=== PATIENT | male | born 1955 | race Caucasian/White ===

== ENCOUNTER 2023-09-15 21:25 | Inpatient (IN) | payer MEDICARE, OTHER ==
[~2023-09-15] VITALS: Ht 180.3 cm; Wt 78.6 kg
[2023-09-15 21:54] LABS: Basophils # (auto) 0 10 ^3/uL (0-0.2); Basophils % (auto) 0.3 % (0.0-2.0); Eosinophils # (auto) 0 10 ^3/uL (0-0.8); Hemoglobin 18.2 g/dL (13.5-17.5); Monocytes # (auto) 0.7 10 ^3/uL (0-1.3); Monocytes % (auto) 4.8 % (0.0-12.0)
[2023-09-15 21:55] LABS: Lymphocytes # (auto) 0.9 10 ^3/uL (0.4-5.4); Lymphocytes % (auto) 6.3 % (10.0-50.0); Mean Corpuscular Hemoglobin 31.6 pg (28.0-32.0); Mean Corpuscular Hgb Conc. 32.1 g/dL (32.0-36.0); Mean Corpuscular Volume 98.6 fL (80.0-100.0); Neutrophils # (auto) 12.3 10 ^3/uL (1.6-8.6); Neutrophils % (auto) 88.6 % (37.0-80.0); Red Blood Cells 5.75 10^6/uL (4.5-5.90); Red Cell Distribution Width 15.6 % (11.8-14.3); White Blood Cell 13.8 10^3/uL (4.4-10.8)
[2023-09-15 21:56] LABS: Hematocrit 56.7 % (41.0-53.0)
[2023-09-15 22:00] VITALS: PULSE 124; RESP 40; O2SAT 91
[2023-09-15 22:09] LABS: INR 1.09 (0.9-1.15); Partial Thromboplastin Time 26.2 SEC (24.5-34.5); Prothrombin Time 11.5 sec (9.3-11.8)
[2023-09-15 22:14] LABS: Alanine Aminotransferase 44 U/L (7-40); Albumin 4.6 g/dL (3.2-4.8); Alkaline Phosphatase 99 U/L (46-116); Anion Gap 19 (5-15); Aspartate Aminotransferase 197 U/L (13-40); BUN/Creatinine Ratio 12.8 (10.0-20.0); Blood Urea Nitrogen 18 mg/dL (9-23); Calcium 10.8 mg/dL (8.5-10.1); Carbon Dioxide 16 mmol/L (20-30); Chloride 98 mmol/L (98-107); Potassium 5.3 mmol/L (3.5-5.1); Sodium 133 mmol/L (136-145)
[2023-09-15 22:15] LABS: Bilirubin, Total 1.4 mg/dL (0.2-1.0); Total Protein 7.9 g/dL (5.7-8.2)
[2023-09-15] MEDS: methylPREDNISolone SOD SUCC 125 MG/2 ML VL IV ONE (22:15)
[2023-09-15 22:17] LABS: Glucose 636 mg/dL (74-106)
[2023-09-15 22:20] VITALS: PULSE 132; RESP 36; O2SAT 94
[2023-09-15] MEDS: fentaNYL Drip 2500mCg/250mlNS 250 ML IV SCH (22:45)
[2023-09-15] MEDS: MIDAZOLAM DRIP 50 mg/50mL 50 ML IV SCH (22:45)
[2023-09-15] MEDS: HEPARIN SODIUM (PORCINE) 5000 UNITS/ML 1ML VIAL IV ONE (22:47)
[2023-09-15] MEDS: SUCCINYLCHOLINE CHLORIDE 20 MG/ML 10ML VIAL IV ONE (22:48)
[2023-09-15] MEDS: ETOMIDATE (2MG/ML) 20ML VIAL IV ONE (22:48)
[2023-09-15] MEDS: MIDAZOLAM DRIP 50 mg/50mL 50 ML IV ONE (22:48)
[2023-09-15] MEDS: fentaNYL Drip 2500mCg/250mlNS 250 ML IV ONE (22:49)
[2023-09-15] MEDS: HEPARIN SODIUM (PORCINE) 5000 UNITS/ML 1ML VIAL ONE (22:49)
[2023-09-15] MEDS: fentaNYL CITRATE 100 MCG/2 ML VL IV ONE (22:53)
[2023-09-15] MEDS: MIDAZOLAM HCL 5 MG/ML-1ML VIAL IV ONE (22:54)
[2023-09-15 22:56] LABS: Magnesium 2.1 mg/dL (1.6-2.6)
[2023-09-15] MEDS: ROCURONIUM 10MG/ML 10ML VIAL IV ONE ×2 (22:56→22:57)
[2023-09-15] MEDS: SODIUM CHL 0.9% 50 ML ONE (22:57)
[2023-09-15] MEDS: ANGIOMAX 250 MG VIAL IV ONE (22:57)
[2023-09-15] MEDS: LIDOCAINE 1% HCL (LOCAL ANESTH.) INJ 20ML MDV ONE (22:57)
[2023-09-15] MEDS: SODIUM CHLORIDE 0.9% 1,000 ML IV ONE (22:57)
[2023-09-15] MEDS: InsuLIN REG 1unit/0.01ml Soln (100units/ml) IV ONE (23:00)
[2023-09-15 23:03] VITALS: BP 133/96; PULSE 111; RESP 23; O2SAT 92
[2023-09-15] MEDS: IODIXANOL 320MG/ML 100ML BTL IV ONE (23:24)
[2023-09-15] MEDS: ALBUTEROL SULF 2.5 MG/0.5ML(0.5%) NEB SOLN NEB ONE (23:30)
[2023-09-15] MEDS: IPRATROPIUM BROM 0.5 MG/2.5ML INH SOL NEB ONE (23:30)
[2023-09-15] MEDS: SODIUM BICARB 8.4% 50Meq/50ml SYR Vial IV ONE (23:34)
[2023-09-15] MEDS: ATROPINE SULF 1 MG/10ml SYR ONE (23:35)
[2023-09-15] MEDS: NOREPINEPHRINE 8 MG/250ML KIT 250 ML IV ONE (23:39)
[2023-09-15] MEDS: EPTIFIBATIDE INJ (2MG/ML) 10ML VIAL IV ONE (23:46)
[2023-09-16] VITALS (158 sets, daily range): BP systolic 99–146; BP diastolic 54–99; PULSE 74–120; RESP 11–25; TEMP 98.2–100.3; O2SAT 96–100
[2023-09-16] MEDS: CLOPIDOGREL BISULFATE 75 MG TAB ONE (00:23)
[2023-09-16] MEDS: ASPirin 325 MG TAB ONE (00:23)
[2023-09-16 01:07] LABS: Base Excess -16.4 mmol/L (-2.0-2.0)
[2023-09-16] MEDS ORDERED: DEXTROSE (50%) 50ML SYRG IV PRN ×2 (01:15→19:30)
[2023-09-16] MEDS: SODIUM BICARB 8.4% 50Meq/50ml SYR Vial IV ONE ×2 (01:20→04:00)
[2023-09-16] MEDS: SODIUM BICARB 8.4% 50Meq/50ml SYR Vial IV STA (01:20)
[2023-09-16] MEDS: INSULIN DRIP 100 UNIT/100ML 100 ML IV ONE (01:21)
[2023-09-16 01:46] LABS: Basophils # (auto) 0 10 ^3/uL (0-0.2); Basophils % (auto) 0.2 % (0.0-2.0); Eosinophils # (auto) 0 10 ^3/uL (0-0.8); Eosinophils % (auto) 0.1 % (0.0-7.0); Hematocrit 53.3 % (41.0-53.0); Lymphocytes # (auto) 0.6 10 ^3/uL (0.4-5.4); Lymphocytes % (auto) 3.1 % (10.0-50.0); Mean Corpuscular Hemoglobin 31.6 pg (28.0-32.0); Mean Corpuscular Volume 98.9 fL (80.0-100.0); Monocytes # (auto) 1.8 10 ^3/uL (0-1.3); Monocytes % (auto) 9.1 % (0.0-12.0); Neutrophils # (auto) 17.6 10 ^3/uL (1.6-8.6); Neutrophils % (auto) 87.5 % (37.0-80.0); Nucleated Red Blood Cells % 0.1 %; Red Blood Cells 5.39 10^6/uL (4.5-5.90); White Blood Cell 20.2 10^3/uL (4.4-10.8)
[2023-09-16] MEDS: INSULIN DRIP 100 UNIT/100ML 100 ML IV SCH (01:51)
[2023-09-16] MEDS: ACCU-CHEK COMFORT CURVE STRIP VI SCH ×2 (01:52→20:21)
[2023-09-16 02:02] LABS: Chloride 103 mmol/L (98-107); Potassium 4.4 mmol/L (3.5-5.1)
[2023-09-16 02:03] LABS: Anion Gap 20 (5-15); Carbon Dioxide 15 mmol/L (20-30)
[2023-09-16 02:08] LABS: BUN/Creatinine Ratio 13.4 (10.0-20.0); Blood Urea Nitrogen 21 mg/dL (9-23)
[2023-09-16 02:23] LABS: Sodium 138 mmol/L (136-145)
[2023-09-16 02:28] LABS: Glucose 530 mg/dL (74-106)
[2023-09-16 02:42] LABS: INR 1.41 (0.9-1.15); Partial Thromboplastin Time 57.7 SEC (24.5-34.5); Prothrombin Time 14.6 sec (9.3-11.8)
[2023-09-16] MEDS: NOREPINEPHRINE 8 MG/250ML KIT 250 ML IV SCH (02:52)
[2023-09-16 03:12] LABS: Magnesium 2.2 mg/dL (1.6-2.6)
[2023-09-16] MEDS: methylPREDNISolone SOD SUCC 125 MG/2 ML VL IV ONE (03:23)
[2023-09-16] MEDS: HEPARIN DRIP/D5W 100UNITS/ML 250 ML IV SCH ×2 (04:26→14:00)
[2023-09-16 05:05] LABS: Base Excess -6.2 mmol/L (-2.0-2.0)
[2023-09-16] MEDS: methylPREDNISolone SOD SUCC 40 MG/ML VL IV SCH (06:04)
[2023-09-16 07:15] LABS: Base Excess -2.3 mmol/L (-2.0-2.0)
[2023-09-16 07:37] LABS: Basophils # (auto) 0 10 ^3/uL (0-0.2); Basophils % (auto) 0.1 % (0.0-2.0); Eosinophils # (auto) 0 10 ^3/uL (0-0.8); Hematocrit 49.6 % (41.0-53.0); Hemoglobin 16.1 g/dL (13.5-17.5); Lymphocytes # (auto) 0.7 10 ^3/uL (0.4-5.4); Mean Corpuscular Hemoglobin 31.4 pg (28.0-32.0); Mean Corpuscular Hgb Conc. 32.5 g/dL (32.0-36.0); Mean Corpuscular Volume 96.5 fL (80.0-100.0); Monocytes # (auto) 1.3 10 ^3/uL (0-1.3); Monocytes % (auto) 6.9 % (0.0-12.0); Neutrophils # (auto) 16.6 10 ^3/uL (1.6-8.6); Nucleated Red Blood Cells % 0.1 %; Red Blood Cells 5.14 10^6/uL (4.5-5.90); Red Cell Distribution Width 15.5 % (11.8-14.3); White Blood Cell 18.7 10^3/uL (4.4-10.8)
[2023-09-16 07:41] LABS: Chloride 108 mmol/L (98-107); Potassium 4.8 mmol/L (3.5-5.1); Sodium 139 mmol/L (136-145)
[2023-09-16 07:42] LABS: Anion Gap 8 (5-15); Carbon Dioxide 23 mmol/L (20-30)
[2023-09-16 07:43] LABS: Calcium 9.3 mg/dL (8.5-10.1)
[2023-09-16 07:48] LABS: BUN/Creatinine Ratio 15.2 (10.0-20.0); Blood Urea Nitrogen 23 mg/dL (9-23)
[2023-09-16 07:58] LABS: Glucose 347 mg/dL (74-106)
[2023-09-16] MEDS: CARVEDILOL 3.125 MG TAB PO ONE (09:26)
[2023-09-16] MEDS: cefTRIAXone 1GM/50ML D5W 50 ML IV SCH (09:35)
[2023-09-16 10:07] LABS: INR 1.08 (0.9-1.15); Partial Thromboplastin Time 33.2 SEC (24.5-34.5); Prothrombin Time 11.4 sec (9.3-11.8)
[2023-09-16] MEDS: THIAMINE 100mg/ml INJ (200mg/2ml VIAL) IV SCH (10:14)
[2023-09-16] MEDS: MAGNESIUM SULFATE 1GM/100ML 100 ML IV SCH (10:14)
[2023-09-16] MEDS: NICOTINE 14 MG/24HR TOPICAL PATCH TD SCH (10:15)
[2023-09-16] MEDS: PANTOPRAZOLE 40 MG/10 ML VIAL INJ IV SCH (10:15)
[2023-09-16] MEDS: CLOPIDOGREL BISULFATE 75 MG TAB PO ONE (10:53)
[2023-09-16] MEDS: ASPirin 81 mg TAB PO ONE (10:53)
[2023-09-16] MEDS: ATORVASTATIN 20 MG TAB PO ONE (10:54)
[2023-09-16] MEDS: HEPARIN SODIUM (PORCINE) 5000 UNITS/ML 1ML VIAL IV ONE (11:30)
[2023-09-16] MEDS ORDERED: HEPARIN SODIUM (PORCINE) 5000 UNITS/ML 1ML VIAL IV ONE (11:45)
[2023-09-16 13:34] LABS: Chloride 108 mmol/L (98-107); Potassium 4.4 mmol/L (3.5-5.1); Sodium 141 mmol/L (136-145)
[2023-09-16 13:35] LABS: Anion Gap 6 (5-15); Carbon Dioxide 27 mmol/L (20-30)
[2023-09-16 13:36] LABS: Calcium 9.3 mg/dL (8.5-10.1)
[2023-09-16 13:40] LABS: BUN/Creatinine Ratio 21.9 (10.0-20.0)
[2023-09-16 13:41] LABS: Blood Urea Nitrogen 33 mg/dL (9-23); Glucose 186 mg/dL (74-106)
[2023-09-16] MEDS ORDERED: EPTIFIBATIDE DRIP(0.75MG/ML) 100 ML IV SCH (16:00)
[2023-09-16] MEDS: EPTIFIBATIDE DRIP(0.75MG/ML) 100 ML IV SCH (16:45)
[2023-09-16 18:06] LABS: INR 1.09 (0.9-1.15); Prothrombin Time 11.5 sec (9.3-11.8)
[2023-09-16] MEDS: InsuLIN REG 1unit/0.01ml Soln (100units/ml) SC SCH (20:26)
[2023-09-16] MEDS: INSULIN LANTUS (GLARGINE) 1 /0.01ml (100units/ml) SC SCH (21:49)
[2023-09-17] VITALS (109 sets, daily range): BP systolic 87–121; BP diastolic 60–86; PULSE 70–89; RESP 15–36; TEMP 97.8–100; O2SAT 93–99
[2023-09-17 02:15] LABS: Urine Amorphous Crystal MOD /hpf (None Seen); Urine Bacteria FEW /hpf (None Seen); Urine Blood 3+ /uL (Negative); Urine Clarity Ex.Turbid (Clear); Urine Color Light-Orange (Yellow); Urine Protein, UAD 1+ (Negative); Urine Specific Gravity 1.037 (1.001-1.035); Urine Urobilinogen Normal (Negative); Urine WBC 4 /hpf (0 - 3)
[2023-09-17 04:05] LABS: Basophils # (auto) 0 10 ^3/uL (0-0.2); Basophils % (auto) 0.1 % (0.0-2.0); Eosinophils # (auto) 0 10 ^3/uL (0-0.8); Hematocrit 45.7 % (41.0-53.0); Hemoglobin 15.2 g/dL (13.5-17.5); Lymphocytes # (auto) 1.3 10 ^3/uL (0.4-5.4); Lymphocytes % (auto) 5.8 % (10.0-50.0); Mean Corpuscular Hemoglobin 31.5 pg (28.0-32.0); Mean Corpuscular Hgb Conc. 33.3 g/dL (32.0-36.0); Mean Corpuscular Volume 94.8 fL (80.0-100.0); Monocytes # (auto) 1.4 10 ^3/uL (0-1.3); Monocytes % (auto) 6.6 % (0.0-12.0); Neutrophils # (auto) 18.9 10 ^3/uL (1.6-8.6); Neutrophils % (auto) 87.5 % (37.0-80.0); Red Blood Cells 4.82 10^6/uL (4.5-5.90); Red Cell Distribution Width 15.3 % (11.8-14.3); White Blood Cell 21.6 10^3/uL (4.4-10.8)
[2023-09-17 04:07] LABS: INR 1.11 (0.9-1.15); Partial Thromboplastin Time 24.3 SEC (24.5-34.5); Prothrombin Time 11.7 sec (9.3-11.8)
[2023-09-17 04:11] LABS: Alanine Aminotransferase 203 U/L (7-40); Albumin 3.5 g/dL (3.2-4.8); Alkaline Phosphatase 76 U/L (46-116); Anion Gap 7 (5-15); Aspartate Aminotransferase 501 U/L (13-40); BUN/Creatinine Ratio 37.5 (10.0-20.0); Calcium 9.8 mg/dL (8.5-10.1); Carbon Dioxide 26 mmol/L (20-30); Chloride 107 mmol/L (98-107); Glucose 217 mg/dL (74-106); Potassium 4.6 mmol/L (3.5-5.1); Sodium 140 mmol/L (136-145)
[2023-09-17 04:12] LABS: Bilirubin, Total 0.6 mg/dL (0.2-1.0)
[2023-09-17 04:16] LABS: Blood Urea Nitrogen 48 mg/dL (9-23)
[2023-09-17 07:20] LABS: Base Excess 0.4 mmol/L (-2.0-2.0)
[2023-09-17] MEDS ORDERED: ATORVASTATIN 20 MG TAB PO ONE (08:30)
[2023-09-17] MEDS: CARVEDILOL 3.125 MG TAB PO SCH (09:30)
[2023-09-17] MEDS: FUROSEMIDE 40 MG/4 ML VIAL IV ONE (09:30)
[2023-09-17] MEDS: CLOPIDOGREL BISULFATE 75 MG TAB PO SCH (09:30)
[2023-09-17] MEDS: ASPirin 81 mg TAB PO SCH (09:31)
[2023-09-17] MEDS: ENOXAPARIN SOD 40 MG/0.4 ML SYRINGE SC SCH (09:31)
[2023-09-17] MEDS: LISINOPRIL 5 MG TAB PO SCH (10:00)
[2023-09-17] MEDS: FUROSEMIDE 20 MG/2 ML VIAL IV SCH (22:23)
[2023-09-18] VITALS (78 sets, daily range): BP systolic 102–160; BP diastolic 69–98; PULSE 75–123; RESP 8–32; TEMP 98.6–100.4; O2SAT 82–99
[2023-09-18 06:30] LABS: Basophils # (auto) 0 10 ^3/uL (0-0.2); Basophils % (auto) 0.1 % (0.0-2.0); Eosinophils # (auto) 0 10 ^3/uL (0-0.8); Hematocrit 46.1 % (41.0-53.0); Hemoglobin 15.4 g/dL (13.5-17.5); Lymphocytes % (auto) 5.3 % (10.0-50.0); Mean Corpuscular Hemoglobin 31.8 pg (28.0-32.0); Mean Corpuscular Hgb Conc. 33.5 g/dL (32.0-36.0); Mean Corpuscular Volume 94.9 fL (80.0-100.0); Monocytes % (auto) 5.2 % (0.0-12.0); Neutrophils # (auto) 17.1 10 ^3/uL (1.6-8.6); Neutrophils % (auto) 89.4 % (37.0-80.0); Nucleated Red Blood Cells % 0.1 %; Red Blood Cells 4.85 10^6/uL (4.5-5.90); Red Cell Distribution Width 15.3 % (11.8-14.3); White Blood Cell 19.1 10^3/uL (4.4-10.8)
[2023-09-18 06:51] LABS: Base Excess -3.7 mmol/L (-2.0-2.0)
[2023-09-18 07:30] LABS: Alanine Aminotransferase 130 U/L (7-40); Albumin 3.4 g/dL (3.2-4.8); Alkaline Phosphatase 96 U/L (46-116); Anion Gap 8 (5-15); Aspartate Aminotransferase 135 U/L (13-40); BUN/Creatinine Ratio 38.2 (10.0-20.0); Bilirubin, Total 0.4 mg/dL (0.2-1.0); Calcium 9.7 mg/dL (8.5-10.1); Carbon Dioxide 25 mmol/L (20-30); Chloride 109 mmol/L (98-107); Glucose 127 mg/dL (74-106); Potassium 5.2 mmol/L (3.5-5.1); Sodium 142 mmol/L (136-145)
[2023-09-18 07:36] LABS: Blood Urea Nitrogen 65 mg/dL (9-23)
[2023-09-18] MEDS: ALBUTEROL SULF 2.5 MG/0.5ML(0.5%) NEB SOLN NEB ONE (09:30)
[2023-09-18] MEDS: DEXTROSE (50%) 50ML SYRG IV ONE (10:17)
[2023-09-18] MEDS: SODIUM ZIRCONIUM CYCL 10 GM PAK PO ONE (10:17)
[2023-09-18] MEDS: FUROSEMIDE 20 MG/2 ML VIAL IV ONE (10:18)
[2023-09-18] MEDS ORDERED: LORazepam 2MG/ML-1ML VIAL IV PRN (11:00)
[2023-09-18] MEDS: InsuLIN REG 1unit/0.01ml Soln (100units/ml) IV ONE (11:05)
[2023-09-18 11:35] LABS: CRP High Sensitivity 7.72 mg/dL (<1.0)
[2023-09-18 11:46] LABS: Creatinine, Urine 63.83 mg/dL (30.0-125.0)
[2023-09-18] MEDS ORDERED: DEXTROSE (50%) 50ML SYRG IV PRN (12:45)
[2023-09-18 13:09] LABS: Lactic Acid w/Reflex 2.5 mmol/L (0.4-2.0)
[2023-09-18 13:09] LABS: Magnesium 2.5 mg/dL (1.6-2.6)
[2023-09-18 13:10] LABS: Magnesium 2.2 mg/dL (1.6-2.6)
[2023-09-18 14:09] LABS: Base Excess -4.1 mmol/L (-2.0-2.0)
[2023-09-18] MEDS: LORazepam 2MG/ML-1ML VIAL IV PRN ×2 (16:30→18:10)
[2023-09-18] MEDS: InsuLIN REG 1unit/0.01ml Soln (100units/ml) SC SCH (17:31)
[2023-09-18] MEDS: ACCU-CHEK COMFORT CURVE STRIP VI SCH (17:31)
[2023-09-18] MEDS: LEVALBUTEROL HCL 1.25 MG/3 ML NEB NEB SCH (18:19)
[2023-09-18] MEDS: IPRATROPIUM BROM 0.5 MG/2.5ML INH SOL NEB SCH (18:19)
[2023-09-18] MEDS: METOPROLOL TARTRATE 25 MG TAB PO SCH (22:00)
[2023-09-19] VITALS (107 sets, daily range): BP systolic 76–153; BP diastolic 47–124; PULSE 57–117; RESP 11–51; TEMP 97.9–98.7; O2SAT 79–100
[2023-09-19] MEDS: MORPHINE SULFATE INJ 2 MG/ml SYRG IV PRN (01:08)
[2023-09-19 08:24] LABS: Hematocrit 48.6 % (41.0-53.0); Hemoglobin 16.1 g/dL (13.5-17.5); Mean Corpuscular Hemoglobin 31.2 pg (28.0-32.0); Mean Corpuscular Hgb Conc. 33.1 g/dL (32.0-36.0); Mean Corpuscular Volume 94.4 fL (80.0-100.0); Red Blood Cells 5.15 10^6/uL (4.5-5.90); Red Cell Distribution Width 15.4 % (11.8-14.3); White Blood Cell 24.4 10^3/uL (4.4-10.8)
[2023-09-19 08:31] LABS: Basophils % (manual) 0 (0.0-2.0); Blast Cells 0; Eosinophils % (manual) 0 (0-7); Metamyelocytes % 0; Myelocytes % 0; Promyelocytes % 0; Reactive Lymphocytes 0
[2023-09-19 08:42] LABS: Alanine Aminotransferase 106 U/L (7-40); Albumin 3.5 g/dL (3.2-4.8); Alkaline Phosphatase 87 U/L (46-116); Anion Gap 8 (5-15); Aspartate Aminotransferase 70 U/L (13-40); BUN/Creatinine Ratio 56.8 (10.0-20.0); Calcium 9.9 mg/dL (8.5-10.1); Carbon Dioxide 27 mmol/L (20-30); Chloride 112 mmol/L (98-107); Glucose 125 mg/dL (74-106); Potassium 3.8 mmol/L (3.5-5.1)
[2023-09-19 08:43] LABS: Bilirubin, Total 0.7 mg/dL (0.2-1.0); Total Protein 6.2 g/dL (5.7-8.2)
[2023-09-19 09:00] LABS: Amphetamine Screen, Urine Neg (NEGATIVE); Barbiturate Scree,Urine Neg (NEGATIVE); Benzodiazephine Screen, Urine Pos (NEGATIVE); Cannabinoid Screen, Urine Neg (NEGATIVE); Cocaine Screen, Urine Neg (NEGATIVE); Opiate Scree,Urine Neg (NEGATIVE); Phencyclidine Screen, Urine Neg (NEGATIVE)
[2023-09-19 09:04] LABS: Blood Urea Nitrogen 75 mg/dL (9-23); Sodium 147 mmol/L (136-145)
[2023-09-19 09:12] LABS: Magnesium 2.4 mg/dL (1.6-2.6)
[2023-09-19] MEDS ORDERED: methylPREDNISolone SOD SUCC 40 MG/ML VL IV SCH (10:00)
[2023-09-19] MEDS: EMPAGLIFLOZIN 10 MG TAB PO SCH (10:00)
[2023-09-19] MEDS: D5W 5% 1,000 ML IV SCH (10:03)
[2023-09-19] MEDS: cefTRIAXone 2GM/50ML D5W 50 ML IV SCH (10:04)
[2023-09-19] MEDS: PANTOPRAZOLE 40 MG/10 ML VIAL INJ IV SCH (10:04)
[2023-09-19] MEDS: LORazepam 2MG/ML-1ML VIAL IV PRN (10:26)
[2023-09-19 11:09] LABS: Band Neutrophils % (manual) 2; Lymphocytes % (manual) 4 (10.0-50.0); Monocytes % (manual) 9 (0-12); Platelet Estimate Adequate; Smudge Cells 1 /100 WBC
[2023-09-19] MEDS: DOBUTamine 1000MCG/ML 250 ML IV SCH (13:43)
[2023-09-19] MEDS ORDERED: DEXTROSE (50%) 50ML SYRG IV PRN (15:15)
[2023-09-19] MEDS: InsuLIN REG 1unit/0.01ml Soln (100units/ml) SC SCH (17:17)
[2023-09-19] MEDS: ACCU-CHEK COMFORT CURVE STRIP VI SCH (17:17)
[2023-09-19] MEDS: ONDANSETRON HCL 4 MG/2 ML VIAL IV PRN (23:04)
[2023-09-20] VITALS (79 sets, daily range): BP systolic 100–165; BP diastolic 60–111; PULSE 87–122; RESP 10–36; TEMP 97.5–98.7; O2SAT 91–100
[2023-09-20 04:17] LABS: Basophils # (auto) 0 10 ^3/uL (0-0.2); Basophils % (auto) 0.1 % (0.0-2.0); Eosinophils # (auto) 0 10 ^3/uL (0-0.8); Lymphocytes # (auto) 0.8 10 ^3/uL (0.4-5.4); Lymphocytes % (auto) 5.7 % (10.0-50.0); Mean Corpuscular Hemoglobin 31.4 pg (28.0-32.0); Mean Corpuscular Hgb Conc. 33.3 g/dL (32.0-36.0); Mean Corpuscular Volume 94.2 fL (80.0-100.0); Monocytes # (auto) 1.1 10 ^3/uL (0-1.3); Neutrophils # (auto) 12.2 10 ^3/uL (1.6-8.6); Neutrophils % (auto) 86.2 % (37.0-80.0); Red Blood Cells 5.09 10^6/uL (4.5-5.90); Red Cell Distribution Width 14.8 % (11.8-14.3); White Blood Cell 14.1 10^3/uL (4.4-10.8)
[2023-09-20 05:26] LABS: Alanine Aminotransferase 84 U/L (7-40); Albumin 3.4 g/dL (3.2-4.8); Alkaline Phosphatase 82 U/L (46-116); Anion Gap 7 (5-15); Aspartate Aminotransferase 79 U/L (13-40); BUN/Creatinine Ratio 46.7 (10.0-20.0); Bilirubin, Total 0.8 mg/dL (0.2-1.0); Calcium 9.9 mg/dL (8.5-10.1); Carbon Dioxide 30 mmol/L (20-30); Chloride 114 mmol/L (98-107); Glucose 132 mg/dL (74-106); Magnesium 2.2 mg/dL (1.6-2.6); Potassium 3.5 mmol/L (3.5-5.1); Sodium 151 mmol/L (136-145); Total Protein 6.1 g/dL (5.7-8.2)
[2023-09-20 05:34] LABS: CRP High Sensitivity 3.29 mg/dL (<1.0)
[2023-09-20 05:37] LABS: Blood Urea Nitrogen 50 mg/dL (9-23)
[2023-09-20] MEDS: MORPHINE SULFATE INJ 2 MG/ml SYRG IV PRN (23:58)
[2023-09-21] VITALS (31 sets, daily range): BP systolic 104–144; BP diastolic 65–93; PULSE 82–117; RESP 12–29; TEMP 97.6–98.5; O2SAT 77–100
[2023-09-21 06:36] LABS: Basophils # (auto) 0 10 ^3/uL (0-0.2); Basophils % (auto) 0.1 % (0.0-2.0); Eosinophils # (auto) 0 10 ^3/uL (0-0.8); Hematocrit 48.9 % (41.0-53.0); Hemoglobin 16.1 g/dL (13.5-17.5); Lymphocytes # (auto) 0.9 10 ^3/uL (0.4-5.4); Lymphocytes % (auto) 8.4 % (10.0-50.0); Mean Corpuscular Hemoglobin 31.1 pg (28.0-32.0); Mean Corpuscular Hgb Conc. 32.9 g/dL (32.0-36.0); Mean Corpuscular Volume 94.5 fL (80.0-100.0); Monocytes # (auto) 1.2 10 ^3/uL (0-1.3); Monocytes % (auto) 10.9 % (0.0-12.0); Neutrophils # (auto) 9.1 10 ^3/uL (1.6-8.6); Neutrophils % (auto) 80.6 % (37.0-80.0); Nucleated Red Blood Cells % 0.1 %; Red Blood Cells 5.17 10^6/uL (4.5-5.90); Red Cell Distribution Width 15.3 % (11.8-14.3); White Blood Cell 11.3 10^3/uL (4.4-10.8)
[2023-09-21 06:46] LABS: Alanine Aminotransferase 59 U/L (7-40); Albumin 3.3 g/dL (3.2-4.8); Alkaline Phosphatase 80 U/L (46-116); Anion Gap 3 (5-15); Aspartate Aminotransferase 43 U/L (13-40); BUN/Creatinine Ratio 35.3 (10.0-20.0); Calcium 9.7 mg/dL (8.5-10.1); Carbon Dioxide 34 mmol/L (20-30); Chloride 113 mmol/L (98-107); Glucose 196 mg/dL (74-106); Potassium 3.3 mmol/L (3.5-5.1); Sodium 150 mmol/L (136-145)
[2023-09-21 06:47] LABS: Bilirubin, Total 0.9 mg/dL (0.2-1.0)
[2023-09-21 06:52] LABS: Blood Urea Nitrogen 36 mg/dL (9-23)
[2023-09-21] MEDS ORDERED: POTASSIUM CHL 10 Meq TABLET PO ONE (07:15)
[2023-09-21] MEDS: POTASSIUM EFFERVESENT TAB 25 MEQ PO ONE (09:57)
[2023-09-21] MEDS: FREE WATER PO SCH (12:04)
[2023-09-21] MEDS: INSULIN LANTUS (GLARGINE) 1 /0.01ml (100units/ml) SC ONE (13:24)
[2023-09-21] MEDS ORDERED: DEXTROSE (50%) 50ML SYRG IV PRN (13:30)
[2023-09-21] MEDS: ACCU-CHEK COMFORT CURVE STRIP VI SCH (17:00)
[2023-09-21] MEDS: InsuLIN REG 1unit/0.01ml Soln (100units/ml) SC SCH (17:00)
[2023-09-21] MEDS: FUROSEMIDE 40 MG/4 ML VIAL IV SCH (17:56)
[2023-09-21] MEDS: ATORVASTATIN 20 MG TAB PO SCH (21:31)
[2023-09-22] VITALS (13 sets, daily range): BP systolic 100–114; BP diastolic 61–74; PULSE 50–109; RESP 15–20; TEMP 97.2–98.3; O2SAT 93–100
[2023-09-22 07:41] LABS: Basophils # (auto) 0 10 ^3/uL (0-0.2); Basophils % (auto) 0.2 % (0.0-2.0); Eosinophils # (auto) 0.1 10 ^3/uL (0-0.8); Eosinophils % (auto) 0.7 % (0.0-7.0); Hematocrit 49.2 % (41.0-53.0); Hemoglobin 16.4 g/dL (13.5-17.5); Lymphocytes # (auto) 1.8 10 ^3/uL (0.4-5.4); Lymphocytes % (auto) 12.7 % (10.0-50.0); Mean Corpuscular Hemoglobin 31.7 pg (28.0-32.0); Mean Corpuscular Hgb Conc. 33.4 g/dL (32.0-36.0); Mean Corpuscular Volume 94.9 fL (80.0-100.0); Monocytes # (auto) 1.4 10 ^3/uL (0-1.3); Monocytes % (auto) 9.6 % (0.0-12.0); Neutrophils # (auto) 10.9 10 ^3/uL (1.6-8.6); Neutrophils % (auto) 76.8 % (37.0-80.0); Nucleated Red Blood Cells % 0.1 %; Red Blood Cells 5.18 10^6/uL (4.5-5.90); Red Cell Distribution Width 14.9 % (11.8-14.3); White Blood Cell 14.2 10^3/uL (4.4-10.8)
[2023-09-22 07:51] LABS: Alanine Aminotransferase 51 U/L (7-40); Albumin 3.3 g/dL (3.2-4.8); Alkaline Phosphatase 85 U/L (46-116); Anion Gap 8 (5-15); Aspartate Aminotransferase 40 U/L (13-40); BUN/Creatinine Ratio 23.3 (10.0-20.0); Blood Urea Nitrogen 27 mg/dL (9-23); Calcium 9.6 mg/dL (8.5-10.1); Carbon Dioxide 31 mmol/L (20-30); Chloride 102 mmol/L (98-107); Glucose 217 mg/dL (74-106); Magnesium 1.9 mg/dL (1.6-2.6); Potassium 3.5 mmol/L (3.5-5.1); Sodium 141 mmol/L (136-145)
[2023-09-22 07:52] LABS: Total Protein 5.9 g/dL (5.7-8.2)
[2023-09-22] MEDS ORDERED: INSULIN LANTUS (GLARGINE) 1 /0.01ml (100units/ml) SC SCH (10:00)
[2023-09-22] MEDS: ONDANSETRON HCL 4 MG/2 ML VIAL ONE (10:40)
[2023-09-22] MEDS: INSULIN LANTUS (GLARGINE) 1 /0.01ml (100units/ml) SC SCH (11:00)
[2023-09-22] MEDS ORDERED: DEXTROSE (50%) 50ML SYRG IV PRN (19:30)
[2023-09-22] MEDS: ACCU-CHEK COMFORT CURVE STRIP VI SCH (22:34)
[2023-09-22] MEDS: InsuLIN REG 1unit/0.01ml Soln (100units/ml) SC SCH (22:36)
[2023-09-23] VITALS (14 sets, daily range): BP systolic 106–135; BP diastolic 56–80; PULSE 50–99; RESP 14–20; TEMP 97.6–98.5; O2SAT 92–100
[2023-09-23 06:41] LABS: Basophils # (auto) 0 10 ^3/uL (0-0.2); Basophils % (auto) 0.1 % (0.0-2.0); Eosinophils # (auto) 0.2 10 ^3/uL (0-0.8); Eosinophils % (auto) 1.3 % (0.0-7.0); Hematocrit 44.5 % (41.0-53.0); Hemoglobin 15.2 g/dL (13.5-17.5); Lymphocytes # (auto) 2.2 10 ^3/uL (0.4-5.4); Lymphocytes % (auto) 16.2 % (10.0-50.0); Mean Corpuscular Hemoglobin 31.6 pg (28.0-32.0); Mean Corpuscular Hgb Conc. 34.1 g/dL (32.0-36.0); Mean Corpuscular Volume 92.7 fL (80.0-100.0); Monocytes # (auto) 1.2 10 ^3/uL (0-1.3); Monocytes % (auto) 8.9 % (0.0-12.0); Neutrophils # (auto) 10.2 10 ^3/uL (1.6-8.6); Neutrophils % (auto) 73.5 % (37.0-80.0); White Blood Cell 13.9 10^3/uL (4.4-10.8)
[2023-09-23 06:48] LABS: Anion Gap 5 (5-15); Carbon Dioxide 33 mmol/L (20-30); Chloride 101 mmol/L (98-107); Potassium 2.8 mmol/L (3.5-5.1); Sodium 139 mmol/L (136-145)
[2023-09-23 06:54] LABS: BUN/Creatinine Ratio 18.6 (10.0-20.0); Blood Urea Nitrogen 22 mg/dL (9-23)
[2023-09-23 06:58] LABS: Glucose 116 mg/dL (74-106)
[2023-09-23] MEDS: InsuLIN REG 1unit/0.01ml Soln (100units/ml) SC SCH (07:05)
[2023-09-23 08:34] LABS: Platelet Estimate Decreased
[2023-09-23] MEDS: POTASSIUM CHL 20 Meq TABLET PO ONE (11:02)
[2023-09-23] MEDS: POTASSIUM CHLORIDE 40 MEQ, LIDOCAINE 1% (LOCAL ANESTH.) 4 ML in SODIUM CHL 0.9% 250 ML IV ONE (13:33)
[2023-09-24] VITALS (14 sets, daily range): BP systolic 109–133; BP diastolic 61–84; PULSE 70–99; RESP 15–20; TEMP 97.7–98.3; O2SAT 92–100
[2023-09-24 06:30] LABS: Basophils # (auto) 0 10 ^3/uL (0-0.2); Eosinophils # (auto) 0.2 10 ^3/uL (0-0.8); Nucleated Red Blood Cells % 0.1 %
[2023-09-24 06:32] LABS: Basophils % (auto) 0.1 % (0.0-2.0); Eosinophils % (auto) 1.7 % (0.0-7.0); Hematocrit 46.5 % (41.0-53.0); Hemoglobin 15.5 g/dL (13.5-17.5); Lymphocytes # (auto) 1.9 10 ^3/uL (0.4-5.4); Mean Corpuscular Hemoglobin 31.3 pg (28.0-32.0); Mean Corpuscular Hgb Conc. 33.4 g/dL (32.0-36.0); Mean Corpuscular Volume 93.8 fL (80.0-100.0); Monocytes # (auto) 1.2 10 ^3/uL (0-1.3); Monocytes % (auto) 8.3 % (0.0-12.0); Neutrophils # (auto) 10.5 10 ^3/uL (1.6-8.6); Neutrophils % (auto) 75.9 % (37.0-80.0); Red Blood Cells 4.95 10^6/uL (4.5-5.90); Red Cell Distribution Width 15.1 % (11.8-14.3); White Blood Cell 13.9 10^3/uL (4.4-10.8)
[2023-09-24 06:53] LABS: Alanine Aminotransferase 36 U/L (7-40); Albumin 3.1 g/dL (3.2-4.8); Alkaline Phosphatase 77 U/L (46-116); Anion Gap 4 (5-15); Aspartate Aminotransferase 28 U/L (13-40); BUN/Creatinine Ratio 19.4 (10.0-20.0); Blood Urea Nitrogen 21 mg/dL (9-23); Calcium 9.1 mg/dL (8.7-10.4); Carbon Dioxide 32 mmol/L (20-30); Chloride 102 mmol/L (98-107); Glucose 135 mg/dL (74-106); Magnesium 1.9 mg/dL (1.6-2.6); Potassium 3.6 mmol/L (3.5-5.1); Sodium 138 mmol/L (136-145)
[2023-09-24 06:54] LABS: Bilirubin, Total 0.8 mg/dL (0.2-1.0); Total Protein 5.9 g/dL (5.7-8.2)
[2023-09-24] MEDS: POLYETHYLENE GLYCOL 17 GM PWDR PO ONE (15:04)
[2023-09-25] VITALS (10 sets, daily range): BP systolic 103–156; BP diastolic 69–77; PULSE 64–99; RESP 16–20; TEMP 36.7; O2SAT 92–100
[2023-09-25 06:31] LABS: Basophils # (auto) 0 10 ^3/uL (0-0.2); Eosinophils # (auto) 0.2 10 ^3/uL (0-0.8); Hemoglobin 15.5 g/dL (13.5-17.5); White Blood Cell 13.4 10^3/uL (4.4-10.8)
[2023-09-25 06:35] LABS: Basophils % (auto) 0.2 % (0.0-2.0); Eosinophils % (auto) 1.6 % (0.0-7.0); Lymphocytes # (auto) 2.3 10 ^3/uL (0.4-5.4); Mean Corpuscular Hemoglobin 31.5 pg (28.0-32.0); Mean Corpuscular Hgb Conc. 33.6 g/dL (32.0-36.0); Mean Corpuscular Volume 93.9 fL (80.0-100.0); Monocytes % (auto) 7.2 % (0.0-12.0); Neutrophils # (auto) 9.9 10 ^3/uL (1.6-8.6); Nucleated Red Blood Cells % 0.1 %; Red Cell Distribution Width 14.9 % (11.8-14.3)
[2023-09-25 06:49] LABS: Anion Gap 4 (5-15); Carbon Dioxide 31 mmol/L (20-30); Chloride 103 mmol/L (98-107); Potassium 3.4 mmol/L (3.5-5.1); Sodium 138 mmol/L (136-145)
[2023-09-25 06:51] LABS: Calcium 8.9 mg/dL (8.7-10.4)
[2023-09-25 06:55] LABS: Glucose 145 mg/dL (74-106)
[2023-09-25 06:56] LABS: BUN/Creatinine Ratio 18.3 (10.0-20.0); Blood Urea Nitrogen 19 mg/dL (9-23)
[2023-09-25] MEDS: POLYETHYLENE GLYCOL 17 GM PWDR PO SCH (09:31)
[2023-09-25] MEDS: POTASSIUM EFFERVESENT TAB 25 MEQ PO ONE (12:27)
[2023-09-25] MEDS ORDERED: EMPA1TAB PO (12:33)
[2023-09-25] MEDS ORDERED: FURO40TA4 PO (12:33)
[2023-09-25] MEDS ORDERED: ATOR20TA50 PO (12:33)
[2023-09-25] MEDS ORDERED: POTA-36 PO (12:33)
[2023-09-25] MEDS ORDERED: MET25T PO (12:33)
[2023-09-25] MEDS ORDERED: ASPI-325 PO (12:33)
[2023-09-25] MEDS ORDERED: CLOP75TA70 PO (12:33)
[2023-09-25] MEDS ORDERED: LISI-275 PO (14:37)
== END 2023-09-25 17:00 | disposition home or self-care (01) | DRG 270 ==
LOC: ER 21:25 → OVERFLOW 09-16 03:23 → ICU WEST 09-16 08:28 → DOU IN ICU 09-20 16:29 → TELE-WESTW 09-21 22:05
PROVIDERS: ADMIT Internal Medicine Pulmonary Disease; ATTEND Internal Medicine
PROC: 4A023N7 Measurement of Cardiac Sampling and Pressure, Left Heart, Percutaneous Approach (ICD-10-PCS; 2023-09-15)
PROC: B211YZZ Fluoroscopy of Multiple Coronary Arteries using Other Contrast (ICD-10-PCS; 2023-09-15)
PROC: B215YZZ Fluoroscopy of Left Heart using Other Contrast (ICD-10-PCS; 2023-09-15)
PROC: 02HV33Z Insertion of Infusion Device into Superior Vena Cava, Percutaneous Approach (ICD-10-PCS; principal; 2023-09-16)
PROC: B548ZZA Ultrasonography of Superior Vena Cava, Guidance (ICD-10-PCS; 2023-09-16)
PROC: 0BH17EZ Insertion of Endotracheal Airway into Trachea, Via Natural or Artificial Opening (ICD-10-PCS; 2023-09-16)
PROC: 5A1945Z Respiratory Ventilation, 24-96 Consecutive Hours (ICD-10-PCS; 2023-09-16)
PROC: 3E073PZ Introduction of Platelet Inhibitor into Coronary Artery, Percutaneous Approach (ICD-10-PCS; 2023-09-16)
PROC: 027034Z Dilation of Coronary Artery, One Artery with Drug-eluting Intraluminal Device, Percutaneous Approach (ICD-10-PCS; 2023-09-16)
PROC: 5A02210 Assistance with Cardiac Output using Balloon Pump, Continuous (ICD-10-PCS; 2023-09-16)
DX: I21.09 ST elevation (STEMI) myocardial infarction involving other coronary artery of anterior wall (principal); A41.59 Other Gram-negative sepsis; G93.41 Metabolic encephalopathy; J96.01 Acute respiratory failure with hypoxia; R57.0 Cardiogenic shock; N17.0 Acute kidney failure with tubular necrosis; R65.21 Severe sepsis with septic shock; I50.23 Acute on chronic systolic (congestive) heart failure; J15.69 Pneumonia due to other Gram-negative bacteria; E87.3 Alkalosis; J44.0 Chronic obstructive pulmonary disease with (acute) lower respiratory infection; F10.139 Alcohol abuse with withdrawal, unspecified; J44.1 Chronic obstructive pulmonary disease with (acute) exacerbation; I25.10 Atherosclerotic heart disease of native coronary artery without angina pectoris; E11.9 Type 2 diabetes mellitus without complications; E87.6 Hypokalemia; I11.0 Hypertensive heart disease with heart failure; T50.2X5A Adverse effect of carbonic-anhydrase inhibitors, benzothiadiazides and other diuretics, initial encounter; F17.200 Nicotine dependence, unspecified, uncomplicated; Z85.528 Personal history of other malignant neoplasm of kidney; Z95.5 Presence of coronary angioplasty implant and graft; Z79.4 Long term (current) use of insulin; Y90.9 Presence of alcohol in blood, level not specified; Y92.89 Other specified places as the place of occurrence of the external cause
CPT/HCPCS: 33967; 36415; 36600; 71045; 76775; 80048; 80053; 80061; 80307; 81001; 82550; 82570; 82805; 82962; 83036; 83605; 83735; 83880; 83930; 84132; 84300; 84484; 85007; 85025; 85027; 85610; 85730; 86141; 87040; 87070; 87077; 87081; 87086; 87186; 87205; 92610; 92941; 93005; 93306; 93458; 94002; 94003; 94640; 96361; 96374; 97110; 97116; 97163; 99152; 99291; 99292; C9113; G0378; J0330; J1815; J2001; J2250; J2405; J7060; Q9967